=== PATIENT | female | born 1980 | race Hispanic/Latino ===

== ENCOUNTER 2020-06-10 11:38 | Emergency (ER) | payer OTHER, SELFPAY ==
[2020-06-10 11:55] VITALS: BP 114/84; PULSE 78; RESP 16; TEMP 37.2; O2SAT 99
--- NOTE | 2020-06-10 12:19 | ED.LOWEXIN ---
HPI - Extremity Injury (Lower) General Chief Complaint: Extremity Injury, Lower Stated Complaint: right leg pain Time Seen by Provider: 06/10/20 12:00 Source: patient Mode of arrival: ambulatory Limitations: no limitations History of Present Illness HPI Narrative: Alexandra Lawrence is 39 yo female with PMH of DVT who comes to express care with a history of left thigh and calf swelling that started yesterday and is got increasingly more swollen and painful. She rates her pain as an 8. She has difficulty putting pressure on her leg. She needs a exercise manager Related Data Home Medications Medication Instructions Recorded Confirmed No Home Medications 06/10/20 06/10/20 Allergies Allergy/AdvReac Type Severity Reaction Status Date / Time No Known Allergies Allergy Verified 06/10/20 12:21 Review of Systems Review of Systems: Narrative: CONSTITUTIONAL: Denies fever, chills, sweats. EYES: Denies visual changes, redness, discharge. ENT: Denies rhinorrhea, congestion, sore throat, otalgia. CARDIOVASCULAR: Denies chest pain, palpitations, edema. RESPIRATORY: Denies dyspnea, wheezing, cough GASTROINTESTINAL: Denies abdominal pain, nausea, vomiting, diarrhea. GENITOURINARY: Denies dysuria, hematuria, abnormal discharge SKIN: Denies rash or itching. NEUROLOGIC: Denies numbness, or focal weakness. PSYCHIATRIC: Denies anxiety or depression. Pain and swelling of the left leg PMFSH Past Medical History Medical History DVT (deep vein thrombosis) in Family History Family History Other Diabetes mellitus Heart disease Hypertension Social History Social History (Updated 06/10/20 @ 12:23 by Emelyn Bee CNP) Smoking status: Never smoker Alcohol intake: never Gender identity (if verbalized by the patient): Female Comments At time of signature, I agree with nursing past medical, surgical, social and family history. There is no relevant family history pertinent to the presenting complaint. Exam Narrative: Exam Narrative: GENERAL: This is a well-nourished, well-developed patient, in moderate distress. HEAD: normocephalic, atraumatic. EYES: Sclera clear/white. Vision is grossly intact. EARS: External ears normal, . Hearing grossly intact. NOSE: External nose normal without nasal discharge, nares without redness, no rhinorrhea. THROAT: Mucous membranes moist, NECK: Neck supple, CARDIOVASCULAR: Regular rate and rhythm without murmurs, gallops, or rubs. RESPIRATORY: Clear to auscultation. Breath sounds equal bilaterally. No wheezes, rales, or rhonchi. GASTROINTESTINAL: Abdomen soft, SKIN: warm, intact with no suspicious lesions or rash, good texture and turgor. NEURO: awake, alert, and oriented to person, place and time. There were no obvious focal neurologic abnormalities. Steady gait EXTREMITIES: Normal range of motion. Left upper thigh and left posterior calf pain and edema notable swelling anterior left upper thigh with pain in left posterior calf; it is not red; calf is not tender, left thigh is tender BACK: Nontender without deformity Course Course Emergency Course: Patient presents to the [facility] care with left thigh swelling and tenderness and swelling in her left calf Measurements are on left thigh25, calf 15.5; R 19/14. Will need further imaging and blood work patient is being transferred to [facility] Vital Signs Vital signs: Vital Signs Temperature 98.9 F 06/10/20 11:55 Pulse Rate 78 06/10/20 11:55 Respiratory Rate 16 06/10/20 11:55 Blood Pressure 114/84 06/10/20 11:55 Pulse Oximetry 99 06/10/20 11:55 Temperature 98.9 F 06/10/20 11:55 Pulse Rate 78 06/10/20 11:55 Respiratory Rate 16 06/10/20 11:55 Blood Pressure 114/84 06/10/20 11:55 Pulse Oximetry 99 06/10/20 11:55 MDM - Extremity Injury (Lower) Differential Diagnosis Differ
== END 2020-06-10 12:32 | disposition short-term general hospital (02) ==
PROVIDERS: Emergency Provider Nurse Practitioner
DX: M79.89 Other specified soft tissue disorders (principal); Z86.718 Personal history of other venous thrombosis and embolism
CPT/HCPCS: 99212; G0463

== ENCOUNTER 2020-06-10 12:53 | Emergency (ER) | payer OTHER, SELFPAY ==
--- NOTE | ~2020-06-10 | US_ITS ---
EXAMINATION: US venous doppler [facility] DATE: 06/10/2020 14:28 INDICATION: Left lower limb pain and swelling TECHNIQUE: Grayscale ultrasound images without and with compression and Doppler ultrasound images of the left lower extremity veins were obtained. COMPARISON: None. FINDINGS: Extensive noncompressible deep venous thrombosis throughout the visualized portions of left common fe moral vein, profunda (deep) femoral vein, femoral vein, popliteal vein, proximal to mid posterior tib ial veins, gastrocnemius vein and greater saphenous vein outflow. The majority of this appears occlus ronit or near occlusive with small amount of vascular flow on color Doppler seen along the thrombosed p ortions of the popliteal, gastrocnemius and posterior tibial veins. The distal aspect of the bilatera l posterior tibial veins and the peroneal veins remain patent and compressible. IMPRESSION: 1. Extensive deep venous thrombosis throughout the left lower limb. Reviewed, dictated and finalized at location B.
[2020-06-10 13:49] VITALS: BP 113/70; PULSE 67; RESP 18; TEMP 36.3; O2SAT 98
[2020-06-10 14:28] LABS: D Dimer 7.65 ug/mL (<0.48)
--- NOTE | 2020-06-10 14:42 | ED.LOWEXIN ---
HPI - Extremity Injury (Lower) General Chief Complaint: Extremity Injury, Lower Stated Complaint: left pain pain poss blood clot Time Seen by Provider: 06/10/20 14:18 Source: patient and old records reviewed Mode of arrival: ambulatory Limitations: language barrier History of Present Illness HPI Narrative: 39-year-old female Referred from urgent care for a 2-day history of swelling and pain to her left leg Venous Doppler ordered from triage and received a call from Dr. Andrews that it was positive for DVT in the femoral popliteal and proximal tibial vein No CP/SOB Related Data Allergies Allergy/AdvReac Type Severity Reaction Status Date / Time No Known Allergies Allergy Verified 06/10/20 12:21 Review of Systems Cardiovascular: Cardiovascular: Denies chest pain Respiratory: Respiratory: Denies dyspnea Gastrointestinal: Gastrointestinal: Denies vomiting Musculoskeletal: Musculoskeletal: Reports myalgias and Reports joint swelling PMFSH Past Medical History Medical History DVT (deep vein thrombosis) in Family History Family History Other Diabetes mellitus Heart disease Hypertension Social History Social History (Updated 06/10/20 @ 12:23 by Emelyn Bee CNP) Smoking status: Never smoker Alcohol intake: never Gender identity (if verbalized by the patient): Female Exam Const: General: no acute distress, well developed, alert and awake Nutritional Appearance: well nourished HENMT: Head: normocephalic and atraumatic Ears: external ears normal General nose exam: No nasal discharge present and no epistaxis Face and sinus: face symmetric Eyes: Conjunctivae: conjunctivae normal Sclera: sclerae normal EOM: EOMs intact bilaterally Neck: Neck: normal visual inspection, supple and no JVD Chest: Chest palpation & inspection: deferred Resp: Effort & Inspection: normal respiratory effort and not tachypneic Auscultation: clear to auscultation bilaterally and other (BS =) Cardio: Rate: regular rate Rhythm: regular rhythm Heart sounds: no gallops and no murmurs GI: Inspection: normal to inspection Back/Spine/Pelvis: Thoracic/Lumbar Spine: thoracic and lumbar spine normal to inspection Skin: General skin exam: normal color and no rashes or lesions noted Neuro: General: moves all extremities and no focal motor deficits Cranial nerves: Yes facial symmetry Speech: normal speech Extrem: General: normal to inspection, full ROM and edema Other: And mild tenderness left calf Psych: Affect: normal affect Course Course Emergency Course: Got case management involved for anticoagulation choice and appears that she will be okay to use Eliquis Vital Signs Vital signs: Vital Signs Temperature 36.3 C L 06/10/20 13:49 Pulse Rate 67 06/10/20 13:49 Respiratory Rate 18 06/10/20 13:49 Blood Pressure 113/70 06/10/20 13:49 Pulse Oximetry 98 06/10/20 13:49 Temperature 36.3 C L 06/10/20 13:49 Pulse Rate 61 06/10/20 17:25 Respiratory Rate 20 06/10/20 17:25 Blood Pressure 112/70 06/10/20 17:25 Pulse Oximetry 100 06/10/20 17:25 MDM - Extremity Injury (Lower) Lab Data Labs: Lab Results 06/10/20 Range/Units 13:56 D-Dimer 7.65 H (<0.48) ug/mL UCG Bedside Result Negative Reference Range: Negative Imaging Data Radiologist's impression: ITS Impressions Venous Doppler Study 06/10/20 14:30 IMPRESSION: 1. Extensive deep venous thrombosis throughout the left lower limb. Discharge Plan Discharge Clinical Impression: Deep vein thrombosis (DVT) of left lower extremity Patient Disposition: Home, Self-Care Condition: Stable Instructions: Deep Vein Thrombosis (ED) Additional Instructions: follow up with your doctor, or the primary care
[2020-06-10 15:47] VITALS: BP 110/65; PULSE 62; RESP 18; O2SAT 100
[2020-06-10] MEDS: ENOXAPARIN 80 MG/0.8 ML SYRINGE SUB-Q (17:07)
[2020-06-10 17:25] VITALS: BP 112/70; PULSE 61; RESP 20; O2SAT 100
--- NOTE | 2020-06-10 18:34 | PC.NURSE ---
Pt had asked if ok to work. Per Dr. Becker i dont see a problem with it . This RN informed pt of this.
== END 2020-06-10 18:37 | disposition home or self-care (01) ==
PROVIDERS: Emergency Provider Emergency Medicine
DX: I82.412 Acute embolism and thrombosis of left femoral vein (principal); I82.432 Acute embolism and thrombosis of left popliteal vein; I82.442 Acute embolism and thrombosis of left tibial vein; I82.462 Acute embolism and thrombosis of left calf muscular vein; I82.492 Acute embolism and thrombosis of other specified deep vein of left lower extremity
CPT/HCPCS: 36415; 81025; 85380; 93971; 96372; 99284; J1650

== ENCOUNTER → 2021-02-09 15:45 | Outpatient (CLI) | payer OTHER, SELFPAY ==
--- NOTE | ~2021-02-09 | US_ITS ---
EXAMINATION: US venous doppler [facility] DATE: 02/09/2021 16:17 INDICATION: Chronic left lower limb deep vein thrombosis. TECHNIQUE: Grayscale ultrasound images without and with compression and Doppler ultrasound images of the left lower extremity veins were obtained. COMPARISON: Ultrasound 06/10/2020 FINDINGS: The visualized portions of left femoral vein, popliteal vein, peroneal veins, posterior tibial veins, and greater saphenous vein outflow are patent. There is thrombus in left common femoral vein and pro amanda femoral vein. IMPRESSION: 1. Deep vein thrombosis involving left common femoral vein and profunda femoral vein with interval i mprovement in distribution. Reviewed, dictated and finalized at location A. IMPRESSION: 1. Deep vein thrombosis involving left common femoral vein and profunda femora l vein with interval improvement in distribution.
== END ==
PROVIDERS: PCP Family Medicine; Visit Provider Family Medicine
DX: I82.412 Acute embolism and thrombosis of left femoral vein (principal)
CPT/HCPCS: 93971

== ENCOUNTER 2021-03-30 18:11 | Emergency (ER) | payer OTHER, SELFPAY ==
[2021-03-30 18:17] VITALS: BP 116/85; PULSE 77; RESP 16; TEMP 36.8; O2SAT 100
--- NOTE | 2021-03-30 18:25 | ED.NAVMDI ---
HPI - Nausea/Vomiting/Diarrhea General Chief complaint: Nausea/Vomiting/Diarrhea Stated complaint: VOMITING/NAUSEA Time Seen by Provider: 03/30/21 18:25 Source: patient Mode of arrival: ambulatory Limitations: no limitations History of Present Illness HPI Narrative: Alexandra Lawrence is a 40 yo female who has a PMH of DVT and is currently on Eliquis and taking it as prescribed; original DVT was after childbirth and was again diagnosed in May; with her today with nausea vomiting and diarrhea for the last 2 days. She is afebrile her vital signs are currently stable, she does not appear to be dehydrated Related Data Allergies Allergy/AdvReac Type Severity Reaction Status Date / Time No Known Allergies Allergy Verified 03/30/21 18:18 [facility] Past Medical History Medical History DVT (deep vein thrombosis) in Family History Family History Other Diabetes mellitus Heart disease Hypertension Social History Social History Social History: Smoking status: Never smoker Second hand tobacco smoke exposure: No Alcohol intake: never Substance use: never Substance use type: does not use Gender identity (if verbalized by the patient): Female Comments At time of signature, I agree with nursing past medical, surgical, social and family history. There is no relevant family history pertinent to the presenting complaint. Exam Narrative: GENERAL: This is a well-nourished, well-developed patient, in mild distress. States she is nauseated through her -qlikview developer HEAD: normocephalic, atraumatic. EYES: Sclera clear/white. Vision is grossly intact. EARS: External ears normal, . Hearing grossly intact. NOSE: External nose normal without nasal discharge, nares without redness, no rhinorrhea. THROAT: Mucous membranes moist, NECK: Neck supple, non-tender CARDIOVASCULAR: Regular rate and rhythm without murmurs, gallops, or rubs. RESPIRATORY: Clear to auscultation. Breath sounds equal bilaterally. No wheezes, rales, or rhonchi. GASTROINTESTINAL: Abdomen soft, non-tender, hypoactive bowel sounds SKIN: warm, intact with no suspicious lesions or rash, good texture and turgor. NEURO: awake, alert, and oriented to person, place and time. There were no obvious focal neurologic abnormalities. Steady gait EXTREMITIES: Normal range of motion. BACK: Nontender without deformity Course Course Emergency Course: Patient with history of DVT and on Eliquis comes to urgent care with complaints of nausea vomiting and diarrhea Patient given Zofran here -ice chips tolerated Requested urine for UA, which patient initially refused to give that she is has not had anything to drink-after ice chips, UA shows no ketones and no white cells no nitrates no blood, test is negative Given Zofran for home as well as some Imodium and given instructions that if nausea vomiting diarrhea continue are if abdominal pain begins that she should go immediately to the ER for further evaluation Vital Signs Vital signs: Vital Signs Temperature 98.3 F 03/30/21 18:17 Pulse Rate 77 03/30/21 18:17 Respiratory Rate 16 03/30/21 18:17 Blood Pressure 116/85 03/30/21 18:17 Pulse Oximetry 100 03/30/21 18:17 Temperature 98.3 F 03/30/21 18:17 Pulse Rate 77 03/30/21 18:17 Respiratory Rate 16 03/30/21 18:17 Blood Pressure 116/85 03/30/21 18:17 Pulse Oximetry 100 03/30/21 18:17 MDM - Nausea/Vomiting/Diarrhea Lab Data Labs: UCG Bedside Result Negative Reference Range: Negative Urine Glucose Negative Reference Range: Negative Urine Bilirubin Negative Reference Rang
[2021-03-30] MEDS: ONDANSETRON HCL ODT 4 MG TABLET PO (18:48)
--- NOTE | 2021-03-30 19:56 | PC.NURSE ---
1910 Given 1/2 cup of ice chips. Reports some better.
--- NOTE | 2021-03-30 19:57 | PC.NURSE ---
1926 Patient up to [facility] and provided urine specimen.
== END 2021-03-30 19:50 | disposition home or self-care (01) ==
PROVIDERS: Emergency Provider Nurse Practitioner; PCP Family Medicine
DX: R11.14 Bilious vomiting (principal); R19.7 Diarrhea, unspecified; Z86.718 Personal history of other venous thrombosis and embolism
CPT/HCPCS: 81003; 81025; 99213; A9270; G0463

== ENCOUNTER 2022-06-24 14:59 | Emergency (ER) | payer OTHER, SELFPAY ==
[2022-06-24 15:41] VITALS: BP 112/73; PULSE 97; RESP 18; TEMP 36.6; O2SAT 99
--- NOTE | 2022-06-24 16:44 | ED.URI ---
HPI - URI/Sore Throat General Chief Complaint: Upper Respiratory Infection Stated Complaint: Sore Throat, Fever Time Seen by Provider: 06/24/22 16:44 Source: patient Mode of arrival: ambulatory Limitations: no limitations History of Present Illness HPI Narrative: 41-year-old female presents with complaint of nasal congestion, cough, fatigue, fever, body aches since yesterday. Denies nausea vomiting diarrhea. No chest pain or shortness of breath. Patient is taking Mucinex and Advil to treat symptoms. All systems reviewed and negative except as noted above. Related Data Allergies Allergy/AdvReac Type Severity Reaction Status Date / Time No Known Allergies Allergy Verified 06/24/22 16:13 Review of Systems Review of Systems: CONSTITUTIONAL: Report fever, chills, or sweats. EYES: Denies visual changes, redness, or discharge. ENT: reports rhinorrhea, congestion, sore throat. Denies otalgia. CARDIOVASCULAR: Denies chest pain, palpitations, or edema. RESPIRATORY: report cough. denies dyspnea. GASTROINTESTINAL: Denies abdominal pain, nausea, vomiting, or diarrhea. GENITOURINARY: Denies dysuria or hematuria. SKIN: Denies rash or itching. MUSCULOSKELETAL: Denies back pain, joint pain, or myalgia. NEUROLOGIC: Denies headache, numbness, or weakness. PSYCHIATRIC: Denies anxiety or depression. All other systems reviewed are negative, except as documented in HPI. [facility] Past Medical History Medical History (Updated 06/24/22 @ 17:22 by Corry Moffett NP) DVT (deep vein thrombosis) in Surgical History Surgical History (Updated 01/26/22 @ 23:16 by Lindy Arriaga MD) H/O partial thyroidectomy Family History Family History Other Diabetes mellitus Heart disease Hypertension Social History Social History (Updated 01/26/22 @ 16:07 by Maris Juan) Social History: Smoking status: Never smoker Second hand tobacco smoke exposure: No Alcohol intake: never Substance use: never Substance use type: does not use Gender identity (if verbalized by the patient): Female Sexual Orientation (if Verbalized by the Patient): Straight or Heterosexual Comments At time of signature, agree with nursing past medical, surgical, social and family history. There is no relevant family history pertinent to the presenting complaint. Exam Narrative: GENERAL: This is a well-nourished, well-developed patient. Patient is ill-appearing but in no distress. HEAD: normocephalic, atraumatic. EYES: PERRL. Sclera clear/white. Vision is grossly intact. EARS: External ears normal, auditory canals clear and without drainage, TMs normal without perforation. Hearing grossly intact. NOSE: External nose normal . Clear nasal drainage. THROAT: Mucous membranes moist, posterior pharynx clear. NECK: Neck supple, non-tender without lymphadenopathy, masses or thyromegaly. CARDIOVASCULAR: Regular rate and rhythm without murmurs, gallops, or rubs. RESPIRATORY: Clear to auscultation. Breath sounds equal bilaterally. No wheezes, rales, or rhonchi. SKIN: warm, Dry, intact with no suspicious lesions or rash, good texture and turgor. NEURO: awake, alert, and oriented to person, place and time. There were no obvious focal neurologic abnormalities. EXTREMITIES: No joint tenderness, effusion, or edema noted. Course Course Level of Care: Express Care Visit Vital Signs Vital signs: Vital Signs Temperature 36.6 C 06/24/22 15:41 Pulse Rate 97 06/24/22 15:41 Respiratory Rate 18 06/24/22 15:41 Blood Pressure 112/73 06/24/22 15:41 Pulse Oximetry 99 06/24/22 15:41 Oxygen Delivery Room Air 06/24/22 15:41 Temperature 36.6 C 06/24/22 15:41 Pulse Rate 97 06/24/22 15:41 Respiratory Rate 18 06/24/22 15:41 Blood Pressure 112/73 06/24/22 15:41 Pulse Oximetry 99 06/24/22 15:41 Oxygen Delivery Room Air 06/24/22 15:41
== END 2022-06-24 17:23 | disposition home or self-care (01) ==
PROVIDERS: Emergency Provider Nurse Practitioner Family; PCP Family Medicine
DX: J10.1 Influenza due to other identified influenza virus with other respiratory manifestations (principal); Z20.822 Contact with and (suspected) exposure to COVID-19; Z86.718 Personal history of other venous thrombosis and embolism; Z90.89 Acquired absence of other organs
CPT/HCPCS: 87426; 87804; 99213; C9803; G0463

== ENCOUNTER 2022-07-18 17:38 | Outpatient (CLI) | payer OTHER, BC, SELFPAY ==
--- NOTE | ~2022-07-18 | US_ITS ---
EXAMINATION: US venous doppler [facility] DATE: 07/18/2022 18:30 INDICATION: f/u dvt . TECHNIQUE: Grayscale images without and with compression and Doppler images of the left lower extremi ty veins were obtained. COMPARISON: 02/09/2021 FINDINGS: The left common femoral vein is not dilated, noncompressible, and contains partial flow. The profunda femoral vein, femoral vein, popliteal vein, peroneal vein, posterior tibial veins, gastrocnemius vei n, and greater saphenous vein are patent. IMPRESSION: 1. 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 Otherwise patent left lower extremity veins. Reviewed, dictated and finalized at location K. AGING DESIGNER
== END 2022-07-18 17:39 | disposition home or self-care (01) ==
LOC: ANHIMG 17:42
PROVIDERS: PCP Family Medicine; Visit Provider Family Medicine
DX: I82.512 Chronic embolism and thrombosis of left femoral vein (principal)
CPT/HCPCS: 93971

== ENCOUNTER 2022-07-31 07:43 | Outpatient (CLI) | payer OTHER, BC, SELFPAY ==
--- NOTE | ~2022-07-31 | CT_ITS ---
CT Angiogram of the Abdomen and Pelvis: Indication: May Thurner syndrome Technique: 2.5 mm axial scans were obtained through the abdomen and pelvis following administration of oral and intravenous administration of 100 cc of Omnipaque 350. 3-D volume rendered reconstruction s were created by the technologist. Dose reduction technique was used on this scan by utilizing auto mated exposure control and iterative reconstruction technique. The dose-length product (DLP) was 706. 85 mGy-cm. Findings: Scans through the lung bases are unremarkable. The liver, spleen, pancreas, gallbladder, adrenals and right kidney are within normal limits. Left ki dney is somewhat small compared to the right side, with areas of probable parenchymal cortical scarri ng. No evidence of aortic aneurysm. No lymphadenopathy. There is probable focal marked compression at the origin of the left common iliac vein the right comm on iliac artery, which would be in keeping with the diagnosis of May Thurner syndrome (axial image 10 4). The left external iliac vein is markedly small in caliber caliber, with probable calcifications, which could reflect sequelae of chronic or prior DVT. No bowel obstruction or bowel wall thickening. There is no evidence to suggest acute appendicitis. Images through the pelvis were performed. Urinary bladder unremarkable. No adnexal mass seen. No asci miriam. Impression: Probable focal marked compression of the origin of the left common iliac vein by the right common dileep ac artery, consistent with diagnosis of May Thurner syndrome. Very small caliber of the left external iliac vein with probable calcifications, suggestive of sequel a of chronic or prior DVT. Areas of cortical parenchymal scarring of the left kidney. Reviewed, dictated and finalized at [facility]. ORT CLERK Impression: Probable focal marked compression of the origin of the left common iliac vein b y the right common iliac artery, consistent with diagnosis of May Thurner syndr ome. Very small caliber of the left external iliac vein with probable calcifications , suggestive of sequela of chronic or prior DVT. Areas of cortical parenchymal scarring of the left kidney.
== END 2022-07-31 07:44 | disposition home or self-care (01) ==
PROVIDERS: PCP Family Medicine; Visit Provider Family Medicine
DX: I82.509 Chronic embolism and thrombosis of unspecified deep veins of unspecified lower extremity (principal)
CPT/HCPCS: 74174; Q9967

== ENCOUNTER 2023-08-06 16:58 | Outpatient (CLI) | payer OTHER, BC, SELFPAY ==
--- NOTE | ~2023-08-06 | US_ITS ---
EXAMINATION: US venous doppler [facility] DATE: 08/06/2023 18:06 INDICATION: M79.662 - Pain in left lower leg . TECHNIQUE: Grayscale images without and with compression and Doppler images of the left lower extremi ty veins were obtained. COMPARISON: 6 weeks FINDINGS: The common femoral and proximal superficial femoral veins are noncompressible. There is a ribbed or c orrugated-like echogenic appearance to the vessel busby in these areas. The left common femoral vein, profunda (deep) femoral vein, femoral vein, popliteal vein, peroneal v ein, posterior tibial veins, and greater saphenous vein are patent. IMPRESSION: Patent left lower extremity veins. No evidence of deep venous thrombosis. Possible common femoral/superficial femoral stent, correlate with history of intervention. Reviewed, dictated and finalized at location K. PATTERNMAKER IMPRESSION: Patent left lower extremity veins. No evidence of deep venous thrombosis. Possible common femoral/superficial femoral stent, correlate with history of in tervention.
== END 2023-08-06 16:59 | disposition home or self-care (01) ==
PROVIDERS: PCP Family Medicine; Visit Provider Family Medicine
DX: I82.502 Chronic embolism and thrombosis of unspecified deep veins of left lower extremity (principal); I87.1 Compression of vein
CPT/HCPCS: 93971

== ENCOUNTER 2024-05-19 14:49 | Outpatient (CLI) | payer OTHER, BC, SELFPAY ==
--- NOTE | ~2024-05-19 | MM_ITS ---
EXAMINATION: MM screening juan manuel BI w edgard HISTORY: Screening TECHNIQUE: Craniocaudal and mediolateral oblique 3-D tomosynthesis images were obtained and synthetic 2-D images were generated. CAD analysis was submitted and interpreted. COMPARISON: No prior mammogram is available for comparison at this institution. BREAST PARENCHYMAL COMPOSITION: Not dense: There are scattered areas of fibroglandular density. FINDINGS: There is no evidence of suspicious mass, calcification, or architectural distortion to sugg est malignancy in either breast. There has been no suspicious interval change. IMPRESSION: 1. No mammographic evidence of malignancy. 2. Recommend routine screening mammography in one year. BI-RADS Category 1: Negative Reviewed, dictated and finalized at location B.
== END 2024-05-19 14:50 | disposition home or self-care (01) ==
LOC: ANHIMG 14:50
PROVIDERS: PCP Family Medicine; Visit Provider Physician Assistant
DX: Z12.31 Encounter for screening mammogram for malignant neoplasm of breast (principal)
CPT/HCPCS: 77063; 77067

== ENCOUNTER 2024-09-22 18:46 | Emergency (ER) | payer OTHER, MEDICAID, SELFPAY ==
--- NOTE | ~2024-09-22 | XR_ITS ---
HISTORY: fall mid back pain COMPARISON: None TECHNIQUE: 3 views of the thoracic spine were performed FINDINGS: No acute compression fracture is present. Bone mineralization is age-appropriate. No significant degenerative disease. IMPRESSION: Unremarkable radiographic evaluation of the thoracic spine, as detailed above. Reviewed, dictated and finalized at location A. RITY ATTENDANT
--- NOTE | ~2024-09-22 | XR_ITS ---
HISTORY: mult pain sites s/p fall yesterday moves and ambulates well COMPARISON: None TECHNIQUE: 3 views of the cervical spine were performed FINDINGS: Visualization of the cervical spine to the superior endplate of T1. Normal curvature of the cervical spine is identified. No prevertebral soft tissue swelling is appreciated. No acute compression fracture is noted. The dens is equidistant between the pillars, without asymmetry. Air column within the trachea is midline. The visualized portions of the bilateral upper lung igl are unremarkable. IMPRESSION: Unremarkable plain film evaluation of the cervical spine, as detailed above. Reviewed, dictated and finalized at location A. OYMENT APPEALS EXAMINER
--- NOTE | ~2024-09-22 | XR_ITS ---
HISTORY: elbow-fall COMPARISON: None TECHNIQUE: 2 limited views (secondary to positioning) of the left elbow were performed FINDINGS: No acute displaced fracture is identified. No definitive elevation of the anterior or posterior fat pads are identified to suggest a supracondyl ar fracture. Overlying soft tissues are unremarkable. Bone mineralization is age-appropriate. IMPRESSION: As above. Reviewed, dictated and finalized at location A. E GRINDER IMPRESSION: As above.
--- NOTE | ~2024-09-22 | XR_ITS ---
HISTORY: left posterior hip pain- fall COMPARISON: None TECHNIQUE: 2 views of the left hip FINDINGS: No acute fracture or dislocation is identified. Superior lateral sclerosis of the femoral acetabular joint space is present consistent with osteoarth ritis. Venous stent detected projecting over the left common femoral and femoral vein. Age-appropriate mineralization. IMPRESSION: Degenerative disease without acute fracture or dislocation Reviewed, dictated and finalized at location A. GER OF SOFTWARE
--- NOTE | ~2024-09-22 | XR_ITS ---
HISTORY: fall, shoulder pain COMPARISON: None TECHNIQUE: 2 views of the left shoulder were performed FINDINGS: No acute fracture. The glenohumeral and acromioclavicular joint space is maintained The visualized portion of the adjacent left lung is clear. The humeral head is well seated within the glenoid fossa. IMPRESSION: No acute fracture or anterior dislocation. Reviewed, dictated and finalized at location A. OR SYSTEMS ENGINEER
--- NOTE | 2024-09-22 18:51 | ED_ITS ---
HPI - Back Pain/Injury General Chief Complaint: Back Pain/Injury Stated Complaint: Neck/Back Pain Time Seen by Provider: 09/22/24 19:15 Source: patient Mode of arrival: ambulatory Limitations: no limitations History of Present Illness HPI Narrative: Maryjane is a 43-year-old female patient presenting to the clinic today with complaints of left-sided neck, shoulder, elbow, thoracic back, and posterior left hip pain from a fall that occurred yesterday. She reports she slipped on some ice and landed on the left side. Denies hitting her head or any loss of consciousness. Denies any vomiting or nausea. Reports she does have a headache. Rates her pain currently a /. She has taken Tylenol for her symptoms. Related Data Allergies Allergy/AdvReac Type Severity Reaction Status Date / Time No Known Allergies Allergy Verified 09/22/24 18:51 Review of Systems Review of Systems: Pertinent positives per HPI. Patient denies any fever, chills, rash, headache, visual changes, dizziness, cough, runny nose, sore throat, shortness of breath, chest pain, palpitations, nausea, vomiting, diarrhea, constipation, abdominal pain, or any urinary issues. [facility] Past Medical History Medical History Chronic anticoagulation Thyroid nodule Chronic deep vein thrombosis (DVT) DVT (deep vein thrombosis) in Surgical History Surgical History H/O partial thyroidectomy Family History Family History Other Diabetes mellitus Heart disease Hypertension Social History Social History Social History: Smoking status: Never smoker Second hand tobacco smoke exposure: No Alcohol intake: never Substance use: never Substance use type: does not use Do You Feel Safe in your Home?: Yes Lack of Transportation: No Lack of Food: Never True Current Housing: I Have Housing Concerned About Future Housing: No Difficulty Paying Gas/Electric Bills: No Difficulty Paying for Meds: No Currently Unemployed: No Education: Decline to Answer Difficulty w/ Childcare or Family Care: No Living arrangements: with family Occupation/Education: occupation Gender identity (if verbalized by the patient): Female Sexual Orientation (if Verbalized by the Patient): Straight or Heterosexual Comments At the time of my signature, I reviewed and agree with the nursing past medical, surgical, social, and family history. There is no relevant family history pertinent to the patient complaint. Exam Narrative: General: Well-developed, well nourished, in no apparent distress Head: Normocephalic, atraumatic. Cardio: Regular rate and rhythm, s1 and s2 normal, no murmur appreciated. Resp: Clear to auscultation bilaterally, no rhonchi, rales, wheezing or rubs. Musculoskeletal: No deformity, tender to palpation over the left side of her neck, left shoulder, midback, left posterior hip, and left elbow, grossly normal range of motion, muscle strength strong and equal in BLE. SLT negative, patellar reflexes 2/4 bilaterally, negative foot drop, normal gait and station Course Course Emergency Course: Portions of this record may have been created with voice recognition software. Level of Care: Express Care Visit Vital Signs Vital signs: Vital Signs Temperature 36.7 C 09/22/24 19:02 Pulse Rate 100 09/22/24 19:02 Respiratory Rate 18 09/22/24 19:02 Blood Pressure 120/76 09/22/24 19:02 Pulse Oximetry 100 09/22/24 19:02 Oxygen Delivery Room Air 09/22/24 19:02 Temperature 36.7 C 09/22/24 19:02 Pulse Rate 100 09/22/24 19:02 Respiratory Rate 18 09/22/24 19:02 Blood Pressure 120/76 09/22/24 19:02 Pulse Oximetry 100 09/22/24 19:02 Oxygen Delivery Room Air 09/22/24 19:02 Vital signs reviewed MDM - Back Pain/Injury MDM Narrative Medical decision making narrative: At the time of visit patient is resting comfortably on the exam table. Patient appears to be nontoxic. Diagnostics: X-rays of the cervical spine, left shoulder, left elbow, thoracic spine, and left hip. All x-rays testing was negative in the clinic today Plan: I suspect patient has cervical sprain, shoulder sprain, hip contusion, thoracic back strain, and elbow contusion. Supportive measures were discussed with the patient and they voiced understanding discharge instructions and agrees to treatment plan. Return precautions reviewed Differential Diagnosis Differential diagnosis: Likely lumbar radiculopathy, sciatica, strain of lumbar region, thoracic back pain and other (Vertebral fracture, elbow fracture, contusion, muscle sprain) Imaging Data Radiologist's impression: ITS Impressions Thoracic Spine X-Ray 09/22/24 20:14 IMPRESSION: Unremarkable radiographic evaluation of the thoracic spine, as detailed above. Hip X-Ray 09/22/24 20:15 IMPRESSION: Degenerative disease without acute fracture or dislocation Elbow X-Ray 09/22/24 20:17 IMPRESSION: As above. Shoulder X-Ray 09/22/24 20:19 IMPRESSION: No acute fracture or anterior dislocation. Cervical Spine X-Ray 09/22/24 20:20 IMPRESSION: Unremarkable plain film evaluation of the cervical spine, as detailed above. Discharge Plan Discharge Clinical Impression: Fall Qualifiers: Encounter type: initial encounter Qualified Code(s): W19.XXXA - Unspecified fall, initial encounter Cervical sprain Qualifiers: Encounter type: initial encounter Qualified Code(s): S13.9XXA - Sprain of joints and ligaments of unspecified parts of neck, initial encounter Shoulder sprain Qualifiers: Encounter type: initial encounter Shoulder sprain type: unspecified sprain Laterality: left Qualified Code(s): S43.402A - Unspecified sprain of left shoulder joint, initial encounter Contusion of hip Qualifiers: Encounter type: initial encounter Laterality: left Qualified Code(s): S70.02XA - Contusion of left hip, initial encounter Thoracic back sprain Qualifiers: Encounter type: initial encounter Qualified Code(s): S23.9XXA - Sprain of unspecified parts of thorax, initial encounter Contusion of elbow Qualifiers: Encounter type: initial encounter Laterality: left Qualified Code(s): S50.02XA - Contusion of left elbow, initial encounter Patient Disposition: Home, Self-Care Condition: Stable Instructions: Antibiotic Form, Contusion in Adults (ED), Shoulder Sprain (ED), Back Pain (ED), Fall Prevention (ED), Acute Neck Pain (ED) Additional Instructions: All x-rays are negative for any sign of fracture or malalignment. Take any prescription medication only as prescribed-cyclobenzaprine Be mindful of sedation precautions given to you if taking a muscle relaxer. May use heat or ice to the affected area May use blue emu, lidocaine patches, or asper cream to affected area- do not apply heat or ice directly over cream- can cause burn. Complete appropriate back stretching exercises. Follow up with your PCP in 3-5 days if symptom persist. Patient Language: Tamazight Prescriptions: New cyclobenzaprine 10 mg tablet 10 mg PO Q8H PRN (Reason: muscle spasm) 7 Days Qty: 21 0RF No Action Eliquis 5 mg tablet See Rx Instructions .ROUTE .COMPLEX Qty: 60 2RF Dose Instruction: TAKE 1 TABLET BY MOUTH TWICE DAILY Rx Instructions: TAKE 1/2 TABLET BY MOUTH TWICE DAILY 2.5mg bid Follow-up/Referrals: Corina,Lindy Zendejas MD [Primary Care Provider] - Time of Disposition: 20:26 Quality NIHSS Nursing Documentation ED NIHSS nursing documentation: reviewed/agree
[2024-09-22 19:02] VITALS: BP 120/76; PULSE 100; RESP 18; TEMP 36.7; O2SAT 100
== END 2024-09-22 20:30 | disposition home or self-care (01) ==
PROVIDERS: Emergency Provider Nurse Practitioner Family; PCP Family Medicine
DX: S13.9XXA Sprain of joints and ligaments of unspecified parts of neck, initial encounter (principal); S43.402A Unspecified sprain of left shoulder joint, initial encounter; S70.02XA Contusion of left hip, initial encounter; S50.02XA Contusion of left elbow, initial encounter; S23.3XXA Sprain of ligaments of thoracic spine, initial encounter; W00.0XXA Fall on same level due to ice and snow, initial encounter; Z86.718 Personal history of other venous thrombosis and embolism; Z90.89 Acquired absence of other organs; Z79.01 Long term (current) use of anticoagulants
CPT/HCPCS: 72040; 72072; 73030; 73070; 73502; 99213; 99214; G0463